=== PATIENT | female | born 1995 | race Caucasian/White ===

== ENCOUNTER 2016-07-12 20:26 | Emergency (ER) | payer BC, OTHER ==
[~2016-07-12] VITALS: Ht 170.2 cm; Wt 59.1 kg
[2016-07-12 20:29] VITALS: TEMP 36.5; Ht 170.2 cm; Wt 59.1 kg
[2016-07-12] MEDS ORDERED: IBUP-1050 PO (20:40)
[2016-07-12] MEDS ORDERED: LORAZEPAM 0.5 MG TAB SL STA (21:22)
[2016-07-12] MEDS ORDERED: KETOROLAC TROMETHAMINE 60 MG/2 ML VIAL IM STA (21:22)
[2016-07-12] MEDS ORDERED: ONDANSETRON 4MG OD TAB PO ONE (21:30)
--- NOTE | 2016-07-12 22:21 | DIAGNOSTIC IMAGING REPORT ---
CT OF THE HEAD WITHOUT CONTRAST CLINICAL HISTORY: Headache. COMPARISON STUDY: No previous studies for comparison. CT DOSE: 537.48 mGy.cm TECHNIQUE: Helical axial images of the head were obtained without IV contrast. Automated exposure control was utilized for the study. FINDINGS: No acute intracranial hemorrhage, midline shift or mass effect is present. Brain volume is normal. Ventricular system is normal. The basilar cisterns are patent. There are no extra-axial collections. Mendes-white differentiation is maintained. There are no findings to suggest acute dural sinus thrombosis or acute territorial infarct. No calvarial abnormalities are identified. Visualized portions of the sinuses and mastoid air cells are clear. IMPRESSION: No acute intracranial findings. Electronically signed by: Frank Lozano M.D. 07/12/2016 10:19 PM Dictated Date/Time: 07/12/2016 10:17 PM
[2016-07-12] MEDS ORDERED: ONDANSETRON HOME PACK 4MG OD TAB PO ONE (23:15)
[2016-07-12] MEDS ORDERED: ATIVAN 1MG HOMEPACK PO ONE (23:15)
[2016-07-12] MEDS ORDERED: ONDA4TAB10 SL (23:16)
[2016-07-12 23:42] VITALS: BP 130/92; PULSE 67; O2SAT 98
--- NOTE | 2016-07-13 00:18 | EMERGENCY ROOM VISIT NOTE ---
History Report prepared by Archie: Alyson Helms Under the Supervision of: Dr. Karthik Franklin D.O. First contact with patient: 21:10 Chief Complaint: HEADACHE Stated Complaint: HEADACHE,NAUSEA,SPOTTY VISION,DIFFICULY FOCUSING History of Present Illness The patient is a 21 year old female who presents to the Emergency Room with complaints of a constant headache that started 24 hours ago. She was unable to relieve the headache with ibuprofen. The patient is also experiencing spotty vision, nausea, vomiting, and trouble sleeping. Additionally, the patient occasionally feels jittery. She denies back pain and lower extremity numbness. The patient states that she stopped taking the Zoloft that she was prescribed for anxiety. The patient states that she stopped the Zoloft 2 weeks ago and she was taking 200 mg daily. She states that the medication was not working for her and she would "lash out" a lot so she stopped taking it suddenly. The patient states that she has 4 exams this week and she needs to feel better. She is concerned about the headache and would like something to ease the nausea. The patient drinks alcohol, but she does not smoke. The patient denies auditory hallucinations and suicidal ideations. The patient does not take anything other than the Zoloft for her anxiety, but she states that she has Lorazepam at home to use as needed for panic attacks. She states that she has not used the Lorazepam for a while. Source of History: patient Onset: 24 hours ago Position: head Quality: other (headache) Timing: constant Associated Symptoms: + nausea, + vomiting, No back pain, No numbness Note: spotty vision, trouble sleeping, no auditory hallucinations, no suicidal ideations Review of Systems See HPI for pertinent positives & negatives. A total of 10 systems reviewed and were otherwise negative. Past Medical & Surgical Medical Problems: (1) No significant past medical history Family History No significant family history Social History Smoking Status: Former Smoker Alcohol Use: occasionally Housing Status: lives with roommate Occupation Status: [employer] student Current/Historical Medications Scheduled Ibuprofen (Advil), 200-600 MG PO Q4H Ondasetron Odt (Zofran Odt), 4 MG SL Q6H Allergies Coded Allergies: No Known Allergies (Unverified , 07/12/16) Physical Exam Vital Signs Date Time Temp Pulse Resp B/P Pulse Ox O2 Delivery O2 Flow Rate FiO2 07/12/16 23:42 67 20 130/92 98 07/12/16 22:08 68 16 131/92 98 Room Air 07/12/16 20:29 36.5 86 16 133/91 97 Room Air Physical Exam GENERAL: Patient is awake, alert, and in no acute distress. Patient is resting comfortably and showing no signs of anxiety EYES: The conjunctivae are clear. The pupils are round and reactive. EARS, NOSE, MOUTH AND THROAT: The nose is without any evidence of any deformity. Mucous membranes are moist tongue is midline NECK: The neck is nontender and supple. RESPIRATORY: Normal respiratory effort is noted there is no evidence of wheezing rhonchi or rales CARDIOVASCULAR: Regular rate and rhythm noted there no murmurs rubs or gallops normal S1 normal S2 GASTROINTESTINAL: The abdomen is soft. Bowel sounds are present in all quadrants. Abdomen is nontender MUSCULOSKELETAL/EXTREMITIES: There is no evidence of gross deformity full range of motion is noted in the hips and shoulders SKIN: There is no obvious evidence of any rash. There are no petechiae, pallor or cyanosis noted. NEUROLOGIC: Patient is awake alert and oriented x3 strength is symmetric patellar reflexes are 2+ bilaterally Medical Decision & Procedures ER Provider Diagnostic Interpretation: CT results as stated below per my review and radiologist interpretation. CT OF THE HEAD WITHOUT CONTRAST IMPRESSION: No acute intracranial findings. Electronically signed by: Frank Lozano M.D. 07/12/2016 10:19 PM Dictated Date/Time: 07/12/2016 10:17 PM Medications Administered Medications (Trade) Dose Ordered Sig/Minerva Route Start Time Stop Time Status Last Admin Dose Admin Ondansetron HCl (Zofran Odt) 4 mg ONE ONCE PO 07/12/16 21:30 07/12/16 21:31 DC 07/12/16 21:31 4 MG Ketorolac Tromethamine (Toradol Inj) 60 mg NOW STAT IM 07/12/16 21:22 07/12/16 21:24 DC 07/12/16 21:32 60 MG Lorazepam (Ativan Tab) 0.5 mg NOW STAT SL 07/12/16 21:22 07/12/16 21:24 DC 07/12/16 21:31 0.5 MG Lorazepam (Ativan 1MG Home Pack) 1 homepack UD ONCE PO 07/12/16 23:15 07/12/16 23:16 DC 07/12/16 23:39 1 HOMEPACK Ondansetron HCl (ZOFRAN ODT 4MG Home Pack) 1 homepack UD ONCE PO 07/12/16 23:15 07/12/16 23:16 DC 07/12/16 23:38 1 HOMEPACK ED Course 2116: The patient was evaluated in room B2. A complete history and physical examination were performed. 2121: Ordered Ativan Tab 0.5 mg SL, Toradol Inj 60 mg IM 2129: Ordered Zofran Odt 4 mg PO 4: Upon reevaluation, the patient is doing well. I discussed the results and treatment plan with her. She verbalized agreement of the treatment plan. She was discharged home. 2314: Ordered Ondansetron HCl 1 homepack PO, Lorazepam 1 homepack PO Medical Decision Prior records/ancillary studies reviewed. Triage Nursing notes reviewed. The patient's history was concerning for headache. Differential diagnosis: Etiologies such as migraine headache, meningitis, sinusitis, CO exposure, ICH, SAH, infection, tumor, headache, sinus thrombosis, arterial dissection, as well as others were entertained. The patient is a 21-year-old female who presented to the emergency department for evaluation of headache and anxiety. The patient recently stopped taking her depression anxiety medication. The patient feels that this is related to her onset of symptoms. She had no meningismus or fever. She has no focal neurologic deficit. Her GCS is 15. The patient's CAT scan did not show any acute disease. I discussed the patient's radiographic studies with her. She was treated with medications for anxiety and nausea in the emergency department. She was encouraged to rest and avoid any strenuous activity. She was also encouraged to call her primary care physician schedule a follow-up appointment. She was also encouraged to return to the emergency department. Crisis immediately if symptoms change worsen or the need arises. Impression Primary Impression: Anxiety Additional Impressions: Headache Nausea Scribe Attestation The scribe's documentation has been prepared under my direction and personally reviewed by me in its entirety. I confirm that the note above accurately reflects all work, treatment, procedures, and medical decision making performed by me. Departure Information Dispostion Home / Self-Care Prescriptions Ondasetron Odt (ZOFRAN ODT) 4 Mg Tab 4 MG SL Q6H for Nausea, #15 TAB Prov: Karthik Franklin, DO 07/12/16 Referrals No Doctor, Assigned (PCP) Forms HOME CARE DOCUMENTATION FORM, IMPORTANT VISIT INFORMATION Patient Instructions Anxiety Body Response, My [facility] Additional Instructions Follow-up with your family doctor soon as possible for reevaluation. Follow-up with your primary therapist as soon as possible. Continue all medications as prescribed. Return to the emergency department immediately if symptoms change worsen or the need arises. Continue using Motrin and Tylenol as directed for pain. Problem Qualifiers Additional Impressions: Headache Headache type: unspecified Headache chronicity pattern: unspecified pattern Intractability: not intractable Qualified Codes: R51 - Headache
== END 2016-07-12 23:44 | disposition home or self-care (01) ==
LOC: C.EDB 20:27
DX: R51 Headache (principal); F41.9 Anxiety disorder, unspecified; R11.0 Nausea; Z87.891 Personal history of nicotine dependence

== ENCOUNTER 2017-03-29 14:08 | Emergency (ER) | payer OTHER ==
[~2017-03-29] VITALS: Ht 170.2 cm; Wt 52.8 kg
[2017-03-29 14:10] VITALS: TEMP 36.5; Ht 170.2 cm; Wt 52.8 kg
[2017-03-29] MEDS ORDERED: OPTIRAY 320 IV PRN (16:00)
[2017-03-29] MEDS ORDERED: ONDANSETRON INJ 2 MG/ML 2 ML VIAL IV STA (16:07)
[2017-03-29 16:15] LABS: BASO % 0.3 %; BASO ABS # 0.02 K/uL (0-0.2); COMPLETE YES; EOS % 0.6 %; HEMATOCRIT 44.6 % (37-47); IG% 0.3 %; LYMPH ABS # 2.31 K/uL (1.2-3.4); MEAN CORPUSCULAR HEMOGLOBIN 31.2 pg (25-34); MEAN CORPUSCULAR HGB CONC 34.3 g/dl (32-36); MEAN PLATELET VOLUME 10.4 fL (7.4-10.4); MONO % 6.5 %; NEUT % 62.3 %; PLATELET COUNT 209 K/uL (130-400)
[2017-03-29 16:23] LABS: URINE APPEARANCE CLEAR (CLEAR); URINE BILIRUBIN NEG (NEG); URINE COLOR YELLOW; URINE NITRITE NEG (NEG); URINE PH 7.5 (4.5-7.5); URINE SPECIFIC GRAVITY 1.012 (1.000-1.030); UROBILINOGEN NEG (NEG); ZZUR CULT IF INDIC CLEAN CATCH NO
[2017-03-29 16:25] LABS: MANUAL MICROSCOPIC REQUIRED? NO; REVIEW REQ? NO
[2017-03-29 16:35] LABS: ALT/SGPT 18 U/L (12-78); AST/SGOT 13 U/L (15-37); BLOOD UREA NITROGEN 11 mg/dl (7-18); BUN/CREATININE RATIO 17.3 (10-20); CALCIUM 8.5 mg/dl (8.5-10.1); CARBON DIOXIDE 27 mmol/L (21-32); CHLORIDE 107 mmol/L (98-107); CREATININE 0.61 mg/dl (0.60-1.20); GLUCOSE 84 mg/dl (70-99); POTASSIUM 3.8 mmol/L (3.5-5.1); SODIUM 140 mmol/L (136-145)
[2017-03-29 16:38] LABS: ALB/GLOB RATIO 1.1 (0.9-2); ALKALINE PHOSPHATASE 78 U/L (45-117)
--- NOTE | 2017-03-29 18:32 | DIAGNOSTIC IMAGING REPORT ---
ABD/PELVIS IV AND ORAL CONT CLINICAL HISTORY: 22 years-old Female presenting with mid abdominal pain, nausea. TECHNIQUE: Multidetector CT of the abdomen and pelvis was performed after the administration of oral and intravenous contrast. IV contrast: 94 mL of Optiray 320. A dose lowering technique was used consistent with the principles of ALARA (as low as reasonably achievable). COMPARISON: None. CT DOSE (mGy.cm): The estimated cumulative dose is 254.91 mGy.cm. FINDINGS: Hand [employer]er topogram: Unremarkable. Lung bases: Pectus excavatum deformity. Lung bases clear. Normal heart size. No pericardial or pleural effusion. Liver: Normal morphology with the exception of a 7.9 cm ovoid lesion at the inferior right hepatic lobe which demonstrates peripheral discontinuous nodular enhancement. The single phase of contrast limits evaluation, although this is favored to represent a hemangioma. No surrounding fluid or evidence of injury or hemorrhage. Relative hypodensity in the more central liver within the distribution of the lesion may relate to perfusional variation. Biliary: Minimal intrahepatic biliary ductal prominence. No extrahepatic biliary ductal dilatation. Gallbladder decompressed. Pancreas: Normal. Spleen: Normal. Adrenal glands: Normal. Kidneys and ureters: Normal. No hydronephrosis. Bladder: Mild circumferential bladder wall thickening suggested. Pelvic organs: Arcuate uterus configuration suggested, which is a normal variant. Normal ovaries. Tampon in place in the vagina. Bowel: Normal appendix. No bowel obstruction. Feces suggested in the distal small bowel at the level of the terminal ileum, which could suggest delayed transit. Focal small bowel wall thickening suggested in the left upper quadrant at the level of the jejunum, where the bowel wall measures up to 6 mm in thickness (series 3 image 176). This segment of small bowel appears to be limited in length measuring approximately 10 cm. Peritoneal cavity: No free fluid or intraperitoneal gas. Lymph nodes: No enlarged lymph nodes in the abdomen or pelvis. Vasculature: Aorta and IVC patent and normal in caliber. Abdominal wall: Small fat-containing umbilical hernia. Musculoskeletal: Normal. IMPRESSION: 1. Focal small bowel wall thickening in a proximal loop of small bowel in the left upper quadrant. This could raise concern for enteritis. The focality and limited extent would be somewhat atypical and unexpected in the setting of infectious enteritis. Differential considerations include Celiac disease or inflammatory bowel disease. 2. Mild circumferential bladder wall thickening could suggest cystitis. Correlate with urinalysis. Electronically signed by: Panchito Boogie M.D. 03/29/2017 6:31 PM Dictated Date/Time: 03/29/2017 6:21 PM
--- NOTE | 2017-03-29 19:07 | EMERGENCY ROOM VISIT NOTE ---
History First contact with patient: 15:38 Chief Complaint: ABDOMINAL PAIN Stated Complaint: N, STOMACH PAIN/TENDERNESS History of Present Illness The patient is a 22 year old female who presents to the Emergency Room with complaints of abdominal pain. The patient states that she was at the gym approximately one week ago when she developed some pain across her upper abdomen. She initially thought this was due to muscle soreness, but states that the pain persisted. She has had persistent pain around her umbilicus with associated nausea and decreased appetite. She has not had any vomiting. She denies any history of similar symptoms. She states the pain is worse when she is lying on her abdomen. She rates the overall discomfort a 6/10. Her last booster. Started today. She denies any associated urinary symptoms or changes in bowel movements. She denies any history of abdominal surgeries. Review of Systems A complete 10 point review of systems was reviewed with the patient with pertinent positives and negatives as per history of present illness. All else were negative. Past Medical/Surgical History Medical Problems: (1) No significant past medical history Family History No significant family history Social History Smoking Status: Never Smoker Alcohol Use: occasionally Housing Status: lives with roommate Occupation Status: [employer] student Current/Historical Medications Scheduled PRN Ibuprofen (Advil), 200-600 MG PO Q4H PRN for Pain or Fever Physical Exam Vital Signs Date Time Temp Pulse Resp B/P (MAP) Pulse Ox O2 Delivery O2 Flow Rate FiO2 03/29/17 19:13 78 16 128/92 99 03/29/17 16:28 64 20 127/83 98 03/29/17 14:10 36.5 78 20 132/92 97 Room Air Physical Exam VITALS: Vitals are noted on the nurse's note and reviewed by myself. Vital signs stable. GENERAL: This is a 22-year-old female, in no acute distress, nondiaphoretic, well-developed well-nourished. HEENT: Normocephalic. PERRLA. Mucous membranes moist. HEART: Regular rate and rhythm without murmurs gallops or rubs. LUNGS: Clear to auscultation bilaterally without wheezes, rales or rhonchi. ABDOMEN: Positive bowel sounds x 4. Soft, mild tenderness to the epigastric region just superior to the umbilicus. No guarding or rebound tenderness. NEURO: Patient was alert and oriented to person place and time. Medical Decision & Procedures ER Provider Diagnostic Interpretation: ABD/PELVIS IV AND ORAL CONT IMPRESSION: 1. Focal small bowel wall thickening in a proximal loop of small bowel in the left upper quadrant. This could raise concern for enteritis. The focality and limited extent would be somewhat atypical and unexpected in the setting of infectious enteritis. Differential considerations include Celiac disease or inflammatory bowel disease. 2. Mild circumferential bladder wall thickening could suggest cystitis. Correlate with urinalysis. Laboratory Results 03/29/17 16:00 Red Blood Count 4.90, Mean Corpuscular Volume 91.0, Mean Corpuscular Hemoglobin 31.2, Mean Corpuscular Hemoglobin Concent 34.3, Mean Platelet Volume 10.4, Neutrophils (%) (Auto) 62.3, Lymphocytes (%) (Auto) 30.0, Monocytes (%) (Auto) 6.5, Eosinophils (%) (Auto) 0.6, Basophils (%) (Auto) 0.3, Neutrophils # (Auto) 4.80, Lymphocytes # (Auto) 2.31, Monocytes # (Auto) 0.50, Eosinophils # (Auto) 0.05, Basophils # (Auto) 0.02 03/29/17 16:00 Test 03/29/17 15:40 03/29/17 16:00 Urine Color YELLOW Urine Appearance CLEAR (CLEAR) Urine pH 7.5 (4.5-7.5) Urine Specific Mccarley 1.012 (1.000-1.030) Urine Protein NEG (NEG) Urine Glucose (UA) NEG (NEG) Urine Ketones NEG (NEG) Urine Occult Blood TRACE (NEG) Urine Nitrite NEG (NEG) Urine Bilirubin NEG (NEG) Urine Urobilinogen NEG (NEG) Urine Leukocyte Esterase NEG (NEG) Urine WBC (Auto) 0 /hpf (0-5) Urine RBC (Auto) 0-4 /hpf (0-4) Urine Hyaline Casts (Auto) 0 /lpf (0-5) Urine Epithelial Cells (Auto) 10-20 /lpf (0-5) Urine Bacteria (Auto) NEG (NEG) Urine Test NEG (NEG) White Blood Count 7.70 K/uL (4.8-10.8) Red Blood Count 4.90 M/uL (4.2-5.4) Hemoglobin 15.3 g/dL (12.0-16.0) Hematocrit 44.6 % (37-47) Mean Corpuscular Volume 91.0 fL (80-100) Mean Corpuscular Hemoglobin 31.2 pg (25-34) Mean Corpuscular Hemoglobin Concent 34.3 g/dl (32-36) Platelet Count 209 K/uL (130-400) Mean Platelet Volume 10.4 fL (7.4-10.4) Neutrophils (%) (Auto) 62.3 % Lymphocytes (%) (Auto) 30.0 % Monocytes (%) (Auto) 6.5 % Eosinophils (%) (Auto) 0.6 % Basophils (%) (Auto) 0.3 % Neutrophils # (Auto) 4.80 K/uL (1.4-6.5) Lymphocytes # (Auto) 2.31 K/uL (1.2-3.4) Monocytes # (Auto) 0.50 K/uL (0.11-0.59) Eosinophils # (Auto) 0.05 K/uL (0-0.5) Basophils # (Auto) 0.02 K/uL (0-0.2) RDW Standard Deviation 43.7 fL (36.4-46.3) RDW Coefficient of Variation 13.2 % (11.5-14.5) Immature Granulocyte % (Auto) 0.3 % Immature Granulocyte # (Auto) 0.02 K/uL (0.00-0.02) Anion Gap 6.0 mmol/L (3-11) Est Creatinine Clear Calc Drug Dose 121.6 ml/min Estimated GFR () > 150.0 Estimated GFR (Non- 129.6 BUN/Creatinine Ratio 17.3 (10-20) Calcium Level 8.5 mg/dl (8.5-10.1) Total Bilirubin 0.5 mg/dl (0.2-1) Aspartate Amino Transf (AST/SGOT) 13 U/L (15-37) Alanine Aminotransferase (ALT/SGPT) 18 U/L (12-78) Alkaline Phosphatase 78 U/L (45-117) Total Protein 7.0 gm/dl (6.4-8.2) Albumin 3.7 gm/dl (3.4-5.0) Globulin 3.3 gm/dl (2.5-4.0) Albumin/Globulin Ratio 1.1 (0.9-2) Lipase 201 U/L (73-393) Medications Administered Medications (Trade) Dose Ordered Sig/Minerva Route Start Time Stop Time Status Last Admin Dose Admin Ondansetron HCl (Zofran Inj) 4 mg NOW STAT IV 03/29/17 16:07 03/29/17 16:08 DC 03/29/17 16:27 4 MG Medical Decision Differential diagnosis includes gastroenteritis, cholecystitis, appendicitis, umbilical hernia, inflammatory bowel disease, kidney stone, urinary tract infection, among others. The patient is a 22-year-old female who presents today complaining of abdominal pain. She does not have a surgical abdomen on exam. Labs revealed no leukocytosis, anemia or concerning electrolyte abnormalities. Urinalysis was not suggestive of infection. Urine was negative. CT of the abdomen and pelvis was performed and read by radiology and showed findings consistent with possible inflammatory bowel disease or celiac disease. I do feel this can be further worked up as an outpatient. The patient has a PCP locally. She may need follow-up with gastroenterology as well. She was informed of all findings. She did not require any analgesics in the emergency department. She was encouraged to use anti-inflammatories at home for pain. The patient's case was reviewed with Dr. Turner, ED attending physician, who agreed with my assessment and treatment plan. Based on the patient's presentation and work up, I feel the patient is stable for outpatient treatment. The patient was educated to return to the emergency department for any worsening of their current condition or new/concerning symptoms. She will follow up with her PCP. Medication Reconcilliation Current Medication List: was personally reviewed by me Blood Pressure Screening Patient's blood pressure: Normal blood pressure Impression Primary Impression: Periumbilical abdominal pain Departure Information Dispostion Home / Self-Care Condition GOOD Referrals Lisseth De La Rosa D.OMason (PCP) Patient Instructions My [facility] Additional Instructions You have been treated in the Emergency Department your Abdominal Pain. Laboratory results and imaging studies have ruled out any emergent causes for your abdominal pain which would warrant admission or surgery. Your CT scan did show some inflammation which may be due to inflammatory bowel disease or celiac disease. You will need further testing as an outpatient for workup of this. Call Dr. Roberts's office tomorrow to schedule this follow- up appointment. They may have you see a cash crop farmer. For pain control, you can use the following [id number] medicines (if >12 yo): - Regular strength (325mg/tab) Tylenol (acetaminophen) 2 tabs every 4-6 hours as needed. Do not exceed 12 tablets in a 24 hour period. Avoid taking more than 4 grams (4000 mg) of Tylenol per day. This includes any other sources of acetaminophen you may take on a regular basis. - Regular strength (200 mg/tab) Advil (ibuprofen) 1-2 tabs every 4-6 hours as needed. Do not exceed a dose of 3200 mg per day. Drink plenty of water and stay well hydrated. Return to the emergency department if your symptoms persist despite treatment plan outlined above or if the following symptoms occur: increased fevers, chills , worsening nausea/vomiting, blood in your stool or urine.
[2017-03-29 19:13] VITALS: BP 128/92; PULSE 78; O2SAT 99
[2017-03-29] MEDS ORDERED: IBUP-1050 PO (20:40)
== END 2017-03-29 19:11 | disposition home or self-care (01) ==
LOC: C.EDB 14:10 → C.EDA 19:11
DX: R10.33 Periumbilical pain (principal)